=== PATIENT | female | born 1995 ===

== ENCOUNTER 2019-07-23 02:02 | Inpatient (IN) | payer OTHER, BC, MEDICAID, SELFPAY ==
[2019-07-23 23:55] VITALS: BP 109/65; PULSE 88; RESP 16; TEMP 36.8; O2SAT 96
[2019-07-24 01:55] VITALS: BP 111/63; PULSE 86; RESP 16; TEMP 36.8; O2SAT 97
[2019-07-24] MEDS: HYDROcodone-acetaminophen 5-325 mg Tablet PO (03:49)
[2019-07-24 07:35] LABS: Hematocrit 27.1 % (37.0-47.0); Hemoglobin 8.8 g/dL (11.5-15.3); Mean Corpuscular HGB Conc 32.5 g/dL (30.0-36.0); Mean Corpuscular Hemoglobin 26.5 pg (28.0-34.0); Mean Corpuscular Volume 81.6 fL (81-99); Mean Platelet Volume 10.6 fL (7.4-10.4); Platelet Count 223 10^3/cmm (130-400); Red Blood Count 3.32 10^6/uL (4.1-5.3); Red Cell Distribution Width 13.3 % (12.1-15.1); White Blood Count 15.5 10^3/uL (4.0-10.0)
[2019-07-24] MEDS: ferrous sulfate EC 325 mg Tablet PO ×2 (09:14→18:39)
[2019-07-24] MEDS: prenatal vitamin Capsule 1 CAP PO (09:16)
[2019-07-24] MEDS: docusate sodium 100 mg Capsule PO ×2 (09:16→18:39)
[2019-07-24] MEDS: citalopram 20 mg Tablet 10 MG PO (09:16)
[2019-07-24 10:15] VITALS: BP 115/65; PULSE 75; RESP 18; TEMP 36.8
--- NOTE | 2019-07-24 11:07 | P.DS_ITS ---
Discharge Providers Date of Admission: 07/23/19 02:02 Date of Discharge: 07/24/19 Attending Provider at Admission: Yosef Hemphill Attending Provider at Discharge: Yosef Hemphill Primary Care Provider: Gatito Bustos MD Diagnoses at Discharge Discharge Diagnosis (1) Term delivered: Status: Acute Reason for Visit Reason for Visit: Reason For Visit: Labor Hospital Course Hospital Course: 31-year-old female with an estimated gestational age of 39 weeks came to labor and delivery complaining of contractions. Upon reevaluation cervical change was noted and she was admitted to labor and delivery. She progressed to have a spontaneous vaginal delivery without complications. She delivered baby girl, Apgars 8/9, weight of 3625 g. She is afebrile And hemodynamically stable. Ambulating without difficulty. Passing flatus. Physical Exam Narrative: EXAM NARRATIVE: GA; alert and oriented x 3 HEENT: normal Breasts: engorged Nipples - skin intact Lungs; clear to auscultation Heart: regular rhythm, no murmurs. Abd: Appropriately tender. BS+. Uterine fundus below umbilicus. No Fundal Tenderness. Perineum: normal lochia. Extremities: no edema, no cyanosis, no tenderness. Discharge Data Data Completed and Pending: Pending at discharge Category Date Time Status Hemagram Routine Lab 07/24/19 22:40 Ordered Labs from last 24 hours 07/24/19 07/23/19 07:20 02:20 WBC 15.5 H 12.4 H RBC 3.32 L 3.79 L Hgb 8.8 L 9.8 L Hct 27.1 L 30.9 L MCV 81.6 81.5 MCH 26.5 L 25.9 L MCHC 32.5 31.7 RDW 13.3 13.2 Plt Count 223 268 MPV 10.6 H 11.1 H Neut % (Auto) 73.1 Lymph % (Auto) 19.7 [place] % (Auto) 6.0 Eos % (Auto) 0.5 Baso % (Auto) 0.3 Neut # (Auto) 9.1 H Lymph # (Auto) 2.5 [place] # (Auto) 0.7 Eos # (Auto) 0.1 Baso # (Auto) 0.0 Nucleated RBC % (a uto) 0 Nucleated RBCs # 0.0 Vitals: Last Vital Signs Temp 98.2 F 07/24/19 01:55 Pulse 86 07/24/19 01:55 Resp 16 07/24/19 01:55 BP 111/63 07/24/19 01:55 Pulse Ox 97 07/24/19 01:55 Discharge Plan Discharge Patient Disposition: Home, Self-Care Condition: Stable Prescriptions: New docusate sodium 100 mg Capsule 100 mg PO BID Qty: 60 RF: 0 ferrous sulfate 325 mg (65 mg iron) Tablet,Delayed Release (Dr/Ec) 325 mg PO BIDWM Qty: 60 RF: 0 ibuprofen 800 mg Tablet 800 mg PO TID Qty: 60 RF: 0 Continued acetaminophen [Tylenol] 325 mg Tablet 325 mg PO QID RF: 0 citalopram 10 mg tablet 10 mg PO DAILY RF: 0 Vitamin 27 mg iron- 0.8 mg tablet 1 tab PO DAILY RF: 0 Discharge Orders: Discharge Order (Routine); Ordered 07/24/19 Ordered By: Yosef Hemphill Referrals: Yosef Hemphill MD [Physician] - None ( visit at the clinic in 6 weeks) Discharge Diet: Regular Discharge Activity: Increase activity as tolerated Patient Instructions: Depression (ED), Perineal Care (GEN), Abnormal Bleeding Activity Restrictions/Additional Instructions: Pelvic rest ror 6 weeks: No tampons, no vaginal douches, no sex. Return to the emergency room with any fever, increased bleeding or pain. Follow-up visit at the clinic in 6 weeks. Discharge Attestations Time Spent in Discharge Care*: other (50 minutes) Specific Discharge Activities: Specific discharge activities: educating patient, documenting/other paperwork and evaluating patient/reviewing data Quality Metrics Clinical Quality Measures During this hospital stay, did patient experience: None Coding Level of Care Code Acute Scene Painter for Chg Fwd Diagnoses Term delivered O80
[2019-07-24] MEDS: acetaminophen 500 mg Tablet PO (18:38)
[2019-07-24 20:52] VITALS: BP 129/80; PULSE 92; RESP 18; TEMP 36.9; O2SAT 98
== END 2019-07-24 20:46 | disposition home or self-care (01) | DRG 807 ==
PROVIDERS: Admitting Provider Obstetrics & Gynecology; Family Provider Family Medicine; PCP Family Medicine; Referring Provider Obstetrics & Gynecology; Visit Provider Obstetrics & Gynecology
DX: O99.344 Other mental disorders complicating childbirth (principal); Z37.0 Single live birth; F32.9 Major depressive disorder, single episode, unspecified; Z3A.39 39 weeks gestation of pregnancy
CPT/HCPCS: 36415; 51702; 59025; 59409; 85025; 99211; J2001; J2405; J2795; J3010

== ENCOUNTER → 2019-08-14 15:00 | Outpatient (BNVA) | payer OTHER, BC, MEDICAID, SELFPAY | PROVIDERS: Family Provider Family Medicine; PCP Family Medicine; Referring Provider Obstetrics & Gynecology; Visit Provider Obstetrics & Gynecology | DX: R39.9 Unspecified symptoms and signs involving the genitourinary system (principal) | CPT/HCPCS: 81003; 87077; 87086; 87186 ==

== ENCOUNTER → 2019-09-26 13:32 | Outpatient (BNVA) | payer BC, MEDICAID, SELFPAY | PROVIDERS: Family Provider Family Medicine; PCP Family Medicine; Visit Provider Nurse Practitioner Women's Health | DX: Z30.9 Encounter for contraceptive management, unspecified (principal); Z30.430 Encounter for insertion of intrauterine contraceptive device | CPT/HCPCS: 81025 ==

== ENCOUNTER → 2019-11-19 10:19 | Outpatient (BNVA) | payer OTHER, BC, MEDICAID, SELFPAY | PROVIDERS: Family Provider Family Medicine; PCP Family Medicine; Visit Provider Emergency Medicine | DX: J02.9 Acute pharyngitis, unspecified (principal) | CPT/HCPCS: 87071; 87880 ==

== ENCOUNTER → 2019-12-14 12:22 | Outpatient (BNVA) | payer OTHER, BC, MEDICAID, SELFPAY | PROVIDERS: Family Provider Family Medicine; PCP Family Medicine; Visit Provider Nurse Practitioner | DX: H66.91 Otitis media, unspecified, right ear (principal); L04.9 Acute lymphadenitis, unspecified; J02.9 Acute pharyngitis, unspecified | CPT/HCPCS: 87071; 87880 ==